=== PATIENT | female | born 1985 | race Caucasian/White ===

== ENCOUNTER 2021-01-21 15:21 | Emergency (ER) | payer MEDICAID ==
[~2021-01-21] VITALS: Ht 167.6 cm; Wt 108.9 kg
[~2021-01-21 15:21] MED LIST: ALBU17AE26 INH; BUPR300T55 PO
[2021-01-21 15:25] VITALS: BP_SYST 146
[2021-01-21] MEDS ORDERED: ADENOSINE 6MG/2ML VIAL ONE (15:32)
[2021-01-21] MEDS ORDERED: MIDAZOLAM HCL 5 MG/5 ML VIAL ONE (15:43)
[2021-01-21] MEDS ORDERED: ETOMIDATE 20 MG/ 10 ML VIAL (AMIDATE) ONE (15:44)
[2021-01-21] MEDS: METOPROLOL TARTRATE 25 MG TABLET PO ONE (16:09)
[2021-01-21] MEDS: METOPROLOL TARTRATE 5 MG/5 ML AMPUL IVP ONE (16:09)
[2021-01-21] MEDS: ETOMIDATE 20 MG/ 10 ML VIAL (AMIDATE) IVP ONE (16:23)
[2021-01-21] MEDS: MIDAZOLAM HCL 5 MG/5 ML VIAL IVP ONE (16:23)
[2021-01-21 19:29] LABS: CALCIUM 8.4 mg/dL (8.4-11.0); CREATININE 0.74 mg/dL (0.55-1.30); POTASSIUM 4.2 mmol/L (3.5-5.1)
[2021-01-21 19:30] LABS: PHOSPHORUS 1.1 mg/dL (2.7-4.5); THYROID STIMULATING HORMONE 1.11 uIu/mL (0.36-3.74)
[2021-01-21] MEDS ORDERED: PHOS250T3 PO (19:45)
[2021-01-21 22:04] VITALS: BP_SYST 134
== END 2021-01-21 20:00 | disposition home or self-care (01) ==
LOC: SED 15:21
DX: I47.1 Supraventricular tachycardia (principal); E83.39 Other disorders of phosphorus metabolism; J45.909 Unspecified asthma, uncomplicated; F41.9 Anxiety disorder, unspecified; Z79.899 Other long term (current) drug therapy
CPT/HCPCS: 36415; 71045; 80048; 83735; 83880; 84100; 84439; 84443; 84484; 93005; 96374; 99152; 99291; J2250; J3490 ×2; J0153